=== PATIENT | female | born 1965 | race Caucasian/White ===

== ENCOUNTER 2018-05-22 20:21 | Emergency (ER) | payer BC ==
[~2018-05-22] VITALS: Ht 165.1 cm; Wt 80.1 kg
[~2018-05-22 20:21] MED LIST: ONDA4TAB6 PO
[2018-05-22 20:22] VITALS: BP 173/103
[2018-05-22] MEDS ORDERED: ketorolac tromethamine 15mg/ml inj. IM ONE (20:50)
[2018-05-23] MEDS ORDERED: HYDR-4383 PO (08:56)
== END 2018-05-22 22:06 | disposition home or self-care (01) ==
LOC: ER 20:21
DX: M25.552 Pain in left hip (principal); I10 Essential (primary) hypertension; G89.29 Other chronic pain; Z79.899 Other long term (current) drug therapy; W18.39XA Other fall on same level, initial encounter; Y93.89 Activity, other specified; Y92.89 Other specified places as the place of occurrence of the external cause; Y99.8 Other external cause status
CPT/HCPCS: 72170; 96372; 99284; J1885

== ENCOUNTER 2018-05-23 08:11 | Emergency (ER) | payer BC ==
[~2018-05-23] VITALS: Ht 165.1 cm; Wt 88.0 kg
[2018-05-23 08:18] VITALS: BP 159/101
[2018-05-23] MEDS ORDERED: HYDR-4383 PO (08:56)
== END 2018-05-23 09:11 | disposition home or self-care (01) ==
LOC: ER 08:12
DX: S70.02XA Contusion of left hip, initial encounter (principal); S80.12XA Contusion of left lower leg, initial encounter; I10 Essential (primary) hypertension; G89.29 Other chronic pain; Z79.899 Other long term (current) drug therapy; W18.39XA Other fall on same level, initial encounter; Y93.K1 Activity, walking an animal; Y92.89 Other specified places as the place of occurrence of the external cause; Y99.8 Other external cause status
CPT/HCPCS: 73502; 99283